=== PATIENT | female | born 1970 | race Caucasian/White ===

== ENCOUNTER → 2023-04-23 10:19 | Outpatient (REF) | payer OTHER, SELFPAY ==
[2023-04-26 23:48] LABS: Quantiferon Mitogen minus NIL 9.28 IU/mL; Quantiferon NIL 0.03 IU/mL; Quantiferon Plus TB1 minus NIL 0.01 IU/mL (0.00-0.34); Quantiferon Plus TB2 minus NIL 0.02 IU/mL (0.00-0.34); Quantiferon TB Gold Plus Negative (Negative)
[2023-04-30 15:54] LABS: Mumps Virus IgG Negative; Varicella Zoster IgG (VZV) Positive
== END ==
LOC: OHS 10:19
PROVIDERS: ATTENDING PHYSICIAN Nurse Practitioner Family
DX: Z23 Encounter for immunization (principal)
CPT/HCPCS: 36415; 86480; 86735; 86787

== ENCOUNTER 2024-03-29 09:39 | Emergency (ER) | payer OTHER, SELFPAY ==
[2024-03-29 09:47] VITALS: BP 159/79
[2024-03-29 10:03] LABS: Urine Albumin Negative (Neg - Trace); Urine Bilirubin Negative (Negative); Urine Character Clear (Clear); Urine Color Yellow; Urine Glucose Negative (Negative); Urine Ketone Negative (Negative); Urine Leukocyte Negative (Negative); Urine Nitrite Negative (Negative); Urine Occult Blood Negative (Negative); Urine Urobilinogen Negative (Neg - 1+); Urine pH 6.5 (5.0-9.0)
--- NOTE | 2024-03-29 10:53 | ED.GENMED ---
History of Present Illness
General
Chief Complaint: Flank Pain
Source: patient
Exam Limitations: none
Time Seen by Provider: 03/29/24 10:47
History of Present Illness
History of Present Illness:
53-year-old female presents with sudden onset right flank pain this morning. Associate with nausea and vomiting. The pain is constant sharp in nature radiates to the front slightly. No urinary symptoms. She has a history of kidney stones and
this feels similar. Prior abdominal surgical history includes . Last menstrual cycle was about 9 months ago. She denies chest pain or shortness of breath. No other
Past History
Past History
ED Past Medical History: Hypothyroidism, Other (Migraine headaches, kidney stones ) and Other (kidney stones, pyelonephritis)
ED Past Surgical History: and Other (Ureteroscopy with laser lithotripsy and Ureteral stenting in the past)
Social History
Tobacco: Non-smoker
Alcohol: None
Drug: None
Personal:
Living: with family
Employment: Not employed
Family History
Family History: Other (Noncontributory)
Phy Exam
Physical Exam
Physical Exam:
General: Well-appearing female who looks uncomfortable
HEENT: Normocephalic atraumatic
Heart: Regular rate and rhythm no murmurs
Lungs: Clear no wheeze
Abdomen soft mildly tender over the right costovertebral angle. No right lower quadrant tenderness. No guarding or rebound normal bowel sounds
Extremities: No cyanosis or edema
Course
Orders/Labs/Results
Orders:
Orders
03/29/24 09:53
Urinalysis Reflex To Culture Urgent
Date Specimen was Collected: 03/29/24
Time Specimen was Collected: 09:50
03/29/24 10:52
CT Abd/pel Without Iv Or Oral Urgent
Comment:
Reason For Exam: right flank pain
0.9% Sodium Chloride 1000 ml [Nss] 1,000 ml IV BOLUS
Ketorolac [Toradol] 15 mg IV NOW STA
Ondansetron Injectable [Zofran] 4 mg IV NOW STA
Test Result ONCE
03/29/24 11:12
Complete Blood Count/With Diff Urgent
Comprehensive Metabolic Panel Urgent
HCG, Serum Qualitative Screen Urgent
03/29/24 11:45
HYDROmorphone [Dilaudid] 0.5 mg IV NOW STA
03/29/24 12:56
Dexamethasone Sod Phosphate [Decadron] 10 mg IV NOW STA
diazePAM [Valium Injection] 5 mg IV NOW STA
Abnormal Lab Results
03/29/24
11:12
RBC 3.79 L 10^6/uL
(4.20-5.40)
Hct 34.3 L %
(37.0-47.0)
MCH 32.2 H pg
(27.0-31.0)
Lymphocytes % 16.5 L %
(20.5-51.1)
BUN 25 H mg/dl
(7-17)
03/29/24 11:12
03/29/24 11:12
Vital Signs
Initial and Last Documented VS:
Initial Vital Signs
Temp Pulse Resp BP Pulse Ox
98.2 F 88 20 159/79 98
03/29/24 09:47 03/29/24 09:47 03/29/24 09:47 03/29/24 09:47 03/29/24 09:47
Last Documented Vital Signs
Temp Pulse Resp BP Pulse Ox
98.2 F 87 16 127/86 100
03/29/24 09:47 03/29/24 13:48 03/29/24 13:48 03/29/24 13:48 03/29/24 13:48
MDM/Problems Addressed
Differential Diagnosis Includes:
Right flank pain. Consider musculoskeletal flank pain versus renal colic versus appendicitis versus constipation versus radiculopathy
Patient does appear somewhat uncomfortable. Will treat symptoms with Toradol Zofran and fluids. Labs pending. Urinalysis negative so far. CT without contrast
*Critical Care Note
Total Time (30-74mins, 75-104mins- exclusive of procedures): Not Applicable
Update Note
Update Note:
CT negative for acute finding. Patient received minimal relief with Toradol and Dilaudid initially but then was given Decadron and Valium and now feels much better. Suspect musculoskeletal flank pain perhaps radiculopathy as there is a component
of leg discomfort. No signs of cauda equina. Will prescribe a steroid and muscle relaxer for her to use at home. Stable for discharge
ED Attending Note
-
Portions of this chart may have been created with voice recognition software.� Occasional wrong word or��sound alike� substitutions may have occurred due to the inherent limitations of voice recognition software.
Discharge Plan
Departure
Patient Disposition: Home (Routine Discharge)
Date of Disposition: 03/29/24
Time of Disposition: 14:47
Patient with high blood pressure during this ER visit?: No
Discharge Problem:
Acute flank pain
Instructions: Flank Pain (DC)
Prescriptions:
New
cyclobenzaprine 10 mg tablet
10 mg PO TID PRN (Reason: spasm) Qty: 10 0RF
prednisone 10 mg Tablet
See Rx Instructions .ROUTE .COMPLEX Qty: 30 0RF
Rx Instructions:
Take By Mouth:
40 mg daily x3 days, 30 mg daily x3 days,
20 mg daily x3 days, 10 mg daily x3 days.
No Action
nortriptyline 10 MG capsule
20 mg PO HS
venlafaxine 150 mg Tablet Extended Release 24hr
175 mg PO DAILY
Emend
40 mg PO ONCE
Referrals:
Zakia Marquez PA-C [Family Provider] -
Activity Restrictions/Additional Instructions:
Use muscle relaxer and steroid as directed. Return here for worsening symptoms otherwise follow-up with your doctor
Interventions
Interventions:
*Risk Screen - Suicide Last Done: 03/29/24 09:47
*General Assessment Last Done: 03/29/24 09:47
*Neglect/Abuse Screening Last Done: 03/29/24 09:47
ED- Fall Risk Assessment Last Done: 03/29/24 11:52
*ED COVID-19 Vaccine History Last Done: 03/29/24 11:51
[place]-Zezmcm-Hjnacneorm Assessment Last Done: 03/29/24 11:05
ED-Female Genitourinary Assessment Last Done: 03/29/24 11:05
Discharge Date and Time
Print Language: CROATIAN
[2024-03-29] MEDS: NSS 1000 IV (11:15)
[2024-03-29] MEDS: TORADOL 15 MG IV (11:15)
[2024-03-29] MEDS: ZOFRAN 4 MG IV (11:15)
[2024-03-29 11:34] LABS: % Basophils 0.7 % (0-2); % Eosinophils 0.8 % (0-6); % Immature Granulocytes 0.3 % (0-0.5); % Lymphocytes 16.5 % (20.5-51.1); % Monocytes 6.5 % (1.7-9.3); % Neutrophils 75.2 % (42.2-75.2); Absolute Basophils 0.1 10^3/uL (0-0.2); Absolute Eosinophils 0.1 10^3/uL (0-0.7); Absolute Lymphocytes 1.2 10^3/uL (1.2-3.4); Absolute Monocytes 0.5 10^3/uL (0.1-0.6); Absolute Neutrophils 5.6 10^3/uL (1.4-6.5); Hematocrit 34.3 % (37.0-47.0); Hemoglobin 12.2 g/dL (12.0-16.0); Mean Corp Hgb Conc. 35.6 g/dL (33.0-37.0); Mean Corpuscular Hgb 32.2 pg (27.0-31.0); Mean Corpuscular Volume 90.5 fL (81.0-99.0); Nucleated Red Blood Cells % 0 %; Platelet Count 254 10^3/uL (130-400); Red Blood Cell Count 3.79 10^6/uL (4.20-5.40); Red Cell Dist. Width 11.9 % (11.5-14.5); White Blood Cell Count 7.4 10^3/uL (4.8-10.8)
[2024-03-29 11:49] LABS: HCG, Serum Qualitative Screen Negative
[2024-03-29] MEDS: DILAUDID 0.5 MG IV (11:49)
[2024-03-29 11:50] VITALS: BP 147/90; BMI 27.5
[2024-03-29 12:01] LABS: ALT (SGPT) 22 U/L (0-35); AST (SGOT) 29 U/L (14-36); Albumin 4.7 g/dl (3.5-5.0); Alkaline Phosphatase 83 U/L (38-126); Blood Urea Nitrogen 25 mg/dl (7-17); Calcium 9.3 mg/dl (8.4-10.2); Carbon Dioxide 29 mmol/L (22-30); Chloride 101 mmol/L (98-107); Estimated Creatinine Clearance 72 ml/min; Glucose 89 mg/dl (70-99); Potassium 4.5 mmol/L (3.5-5.1); Sodium 138 mmol/L (135-145); Total Bilirubin 0.5 mg/dl (0.2-1.3); Total Protein 7.2 g/dl (6.3-8.2); eGFR > 60.00
[2024-03-29 12:38] VITALS: BP 163/89
[2024-03-29] MEDS: DECADRON 10 MG IV (13:19)
[2024-03-29] MEDS: VALIUM INJECTION 5 MG IV (13:20)
[2024-03-29 13:48] VITALS: BP 127/86
== END 2024-03-29 15:14 | disposition home or self-care (01) ==
LOC: EMR 09:39
PROVIDERS: Emergency Medicine; Physician Assistant; EMERGENCY PHYSICIAN Emergency Medicine; FAMILY PHYSICIAN Physician Assistant Medical
DX: R10.9 Unspecified abdominal pain (principal); R11.2 Nausea with vomiting, unspecified; E03.9 Hypothyroidism, unspecified; Z87.442 Personal history of urinary calculi
CPT/HCPCS: 99284; 96374; 96375; 96361; 74176; 80053; 81003; 84703; 85025